=== PATIENT | male | born 1965 | race Caucasian/White ===

== ENCOUNTER 2022-06-25 18:41 | Observation (INO) | payer MEDICARE, OTHER ==
[2022-06-25] MEDS ORDERED: NITROGLYCERIN OINT 1 INCH/GM PACKET TOPICAL STA (18:47)
[2022-06-25] MEDS ORDERED: ASPIRIN 81 MG PO STA (18:47)
--- NOTE | 2022-06-25 18:53 | ED ---
General Adult HPI - General Stated complaint: chest pain Time Seen by Provider: 06/25/22 18:41 Source: patient, RN notes reviewed, old records reviewed - History of Present Illness Initial comments: This is a 57-year-old male who presents emergency Department from [facility]. Patient sent for alcohol abuse he states he hasn't drank in 2 months. Patient states this morning he had chest pain it was intermittent all day lasting either 10 minutes to an hour and it was associated with some sweating and some shortness of breath per patient states in the industrial truck mechanic gave the patient nitroglycerin and aspirin it took away the pain patient remains pain-free currently. Patient states he did have a heart attack back in the 90s. Patient also has a history of high blood pressure high cholesterol and smokes and has a positive family history of heart disease. Patient denies any recent fever chills or cough. Patient denies any abdominal pain patient denies any nausea vomiting - Related Data Home Medications Medication Instructions Recorded Confirmed Acetaminophen Tab [Tylenol] 650 mg PO TID 06/25/22 06/25/22 Benzocaine 20 % Gel [Orajel] 1 applic PO DIRECTED PRN 06/25/22 06/25/22 Calcium/Magnesium/Zinc/Vitamin D 1 tab PO TID 06/25/22 06/25/22 334/134/5mg Clindamycin [Cleocin] 450 mg PO TID@0600,1200,1800 06/25/22 06/25/22 Ibuprofen [Motrin Ib] 600 mg PO Q6H PRN 06/25/22 06/25/22 Lidocaine Viscous 2% [Xylocaine 1 dose PO DIRECTED PRN 06/25/22 06/25/22 Viscous] Multivitamins, Thera [Multivitamin 1 tab PO DAILY 06/25/22 06/25/22 (formulary)] Thiamine [Vitamin B-1] 100 mg PO DAILY 06/25/22 06/25/22 guaiFENesin [guaiFENesin Oral 200 mg PO Q4H PRN 06/25/22 06/25/22 Solution] traZODone HCL [Desyrel] 50 - 150 mg PO HS 06/25/22 06/25/22 Allergies Allergy/AdvReac Type Severity Reaction Status Date / Time No Known Allergies Allergy Verified 06/25/22 20:06 Review of Systems ROS Statement: Those systems with pertinent positive or pertinent negative responses have been documented in the HPI. ROS Other: All systems not noted in ROS Statement are negative. General Exam - General Exam Comments Initial Comments: GENERAL: Patient is well-developed and well-nourished. Patient is nontoxic and well- hydrated and is in mild distress. ENT: Neck is soft and supple. No significant lymphadenopathy is noted. Oropharynx is clear. Moist mucous membranes. Neck has full range of motion without eliciting any pain. EYES: The sclera were anicteric and conjunctiva were pink and moist. Extraocular movements were intact and pupils were equal round and reactive to light. Eyelids were unremarkable. PULMONARY: Unlabored respirations. Good breath sounds bilaterally. No audible rales rhonchi or wheezing was noted. CARDIOVASCULAR: There is a regular rate and rhythm without any murmurs gallops or rubs. ABDOMEN: Soft and nontender with normal bowel sounds. SKIN: Skin is clear with no lesions or rashes and otherwise unremarkable. NEUROLOGIC: Patient is alert and oriented x3. Cranial nerves II through XII are grossly intact. Motor and sensory are also intact. Normal speech, volume and content. Symmetrical smile. MUSCULOSKELETAL: Normal extremities with adequate strength and full range of motion. LYMPHATICS: No significant lymphadenopathy is noted PSYCHIATRIC: Normal psychiatric evaluation. Course Vital Signs 06/25/22 06/25/22 06/25/22 18:45 18:56 20:41 Temperature 97.5 F L Pulse Rate 71 65 Pulse Rate [ 72 Web Site Designer ] Respiratory 18 18 Rate Blood Pressure 163/101 153/108 O2 Sat by Pulse 98 95 Oximetry Medical Decision Making - Medical Decision Making EKG shows a sinus rhythm at [address] interval is 153 QRS is 92 QT interval is 44 QTC is 413. Patient's EKG shows no ST segment elevation or depression. Was pt. sent in by a medical professional or institution (, PA, ADVISORY INTERN, urgent care, hospital, or halfway...) When possible be specific @ -No Did you speak to anyone other than the patient for history (EMS, parent, family, police, friend...)? What history was obtained from this source @ -EMS gave part of the report. Did you review nursing and triage notes (agree or disagree)? Why? @ -I reviewed and agree with nursing and triage notes Were old charts reviewed (outside hosp., previous admission, EMS record, old EKG, old radiological studies, urgent care reports/EKG's, halfway records)? Report findings @ -No old charts were reviewed Differential Diagnosis (chest pain, altered mental status, abdominal pain women, abdominal pain men, vaginal bleeding, weakness, fever, dyspnea, syncope, headache, dizziness, GI bleed, back pain, seizure, CVA, palpatations, mental health, musculoskeletal)? @ -Differential Chest Pain: Stable Angina, Unstable Angina, STEMI, NSTEMI Aortic Dissection, Pneumothorax, Musculoskeletal, Esophageal Spasm GERD, Cholecystitis, Pancreatitis, Zoster, this is not meant to be an all-inclusive list. EKG interpreted by me (3pts min.). @ -As above X-rays interpreted by me (1pt min.). @ -Chest x-ray was interpreted by myself. X-ray shows no acute abnormality CT interpreted by me (1pt min.). @ -None done U/S interpreted by me (1pt. min.). @ -None done What testing was considered but not performed or refused? (CT, X-rays, U/S, labs)? Why? @ -None What meds were considered but not given or refused? Why? @ -None Did you discuss the management of the patient with other professionals (professionals i.e. , PA, ADVISORY INTERN, lab, RT, psych nurse, social and human services assistant, hardware installation coordinator, teacher, combatant diver officer, casework specialist)? Give summary @ -I spoke with the [facility]ist agreed to admit the patient admitted the patient wrote admitting orders Was smoking cessation discussed for >3mins.? @ -No Was critical care preformed (if so, how long)? @ -No Were there social determinants of health that impacted care today? How? (Homelessness, low income, unemployed, alcoholism, drug addiction, transportation, low edu. Level, literacy, decrease access to med. care, long-term, rehab)? @ -No Was there de-escalation of care discussed even if they declined (Discuss DNR or withdrawal of care, Hospice)? DNR status @ -No What co-morbidities impacted this encounter? (DM, HTN, Smoking, COPD, CAD, Cance r, CVA, ARF, Chemo, Hep., AIDS, mental health diagnosis, sleep apnea, morbid obesity)? @ -None Was patient admitted / discharged? Hospital course, mention meds given and route, prescriptions, significant lab abnormalities, going to OR and other pertinent info. @ -Patient came in with chest pain EMS gave the patient aspirin and nitroglycerin and it took away his pain completely. He remained chest pain-free throughout his course in the emergency department. Chest x-ray was done and showed no acute abnormality. Troponin was sent was normal at this time. I spoke with [facility] see agreed to admit patient to the patient consult cardiology I repeated troponins. Undiagnosed new problem with uncertain prognosis? @ -No Drug Therapy requiring intensive monitoring for toxicity (Heparin, Nitro, Insulin, Cardizem)? @ -No Were any procedures done? @ -No Diagnosis/symptom? @ -Chest pain Acute, or Chronic, or Acute on Chronic? @ -Acute Uncomplicated (without systemic symptoms) or Complicated (systemic symptoms)? @ -Complicated Side effects of treatment? @ -No Exacerbation, Progression, or Severe Exacerbation? @ -No Poses a threat to life or bodily function? How? (Chest pain, USA, MT, pneumonia, PE, COPD, DKA, ARF, appy, cholecystitis, CVA, Diverticulitis, Homicidal, Suicidal, threat to staff... and all critical care pts) @ -Yes this could lead to myocardial infarction which can lead to hypoperfusion was completed and oriented dysfunction - Lab Data Result diagrams: 06/25/22 19:01 06/25/22 19:01 Lab Results 06/25/22 06/25/22 06/25/22 Range/Units 19:01 19:01 19:01 WBC 9.2 (3.8-10.6) k/uL RBC 4.09 L (4.30-5.90) m/uL Hgb 13.2 (13.0-17.5) gm/dL Hct 40.4 (39.0-53.0) % MCV 98.6 (80.0-100.0) fL MCH 32.3 (25.0-35.0) pg MCHC 32.8 (31.0-37.0) g/dL RDW 13.3 (11.5-15.5) % Plt Count 217 (150-450) k/uL MPV 7.4 Neutrophils % 66 % Lymphocytes % 21 % Monocytes % 7 % Eosinophils % 4 % Basophils % 1 % Neutrophils # 6.1 (1.3-7.7) k/uL Lymphocytes # 1.9 (1.0-4.8) k/uL Monocytes # 0.7 (0-1.0) k/uL Eosinophils # 0.4 (0-0.7) k/uL Basophils # 0.1 (0-0.2) k/uL PT 9.9 (9.0-12.0) sec INR 0.9 (<1.2) APTT 26.4 (22.0-30.0) sec Sodium 140 (137-145) mmol/L Potassium 4.9 (3.5-5.1) mmol/L Chloride 107 (98-107) mmol/L Carbon Dioxide 26 (22-30) mmol/L Anion Gap 7 mmol/L BUN 19 (9-20) mg/dL Creatinine 0.63 L (0.66-1.25) mg/dL Est GFR (CKD-EPI)AfAm >90 (>60 ml/min/1.73 sqM) Est GFR (CKD-EPI)NonAf >90 (>60 ml/min/1.73 sqM) Glucose 101 H (74-99) mg/dL Calcium 9.3 (8.4-10.2) mg/dL Magnesium 1.8 (1.6-2.3) mg/dL Total Bilirubin 0.3 (0.2-1.3) mg/dL AST 23 (17-59) U/L ALT 15 (4-49) U/L Alkaline Phosphatase 48 (38-126) U/L Troponin I (0.000-0.034) ng/mL Total Protein 6.5 (6.3-8.2) g/dL Albumin 3.8 (3.5-5.0) g/dL 06/25/22 Range/Units 19:01 WBC (3.8-10.6) k/uL RBC (4.30-5.90) m/uL Hgb (13.0-17.5) gm/dL Hct (39.0-53.0) % MCV (80.0-100.0) fL MCH (25.0-35.0) pg MCHC (31.0-37.0) g/dL RDW (11.5-15.5) % Plt Count (150-450) k/uL MPV Neutrophils % % Lymphocytes % % Monocytes % % Eosinophils % % Basophils % % Neutrophils # (1.3-7.7) k/uL Lymphocytes # (1.0-4.8) k/uL Monocytes # (0-1.0) k/uL Eosinophils # (0-0.7) k/uL Basophils # (0-0.2) k/uL PT (9.0-12.0) sec INR (<1.2) APTT (22.0-30.0) sec Sodium (137-145) mmol/L Potassium (3.5-5.1) mmol/L Chloride (98-107) mmol/L Carbon Dioxide (22-30) mmol/L Anion Gap mmol/L BUN (9-20) mg/dL Creatinine (0.66-1.25) mg/dL Est GFR (CKD-EPI)AfAm (>60 ml/min/1.73 sqM) Est GFR (CKD-EPI)NonAf (>60 ml/min/1.73 sqM) Glucose (74-99) mg/dL Calcium (8.4-10.2) mg/dL Magnesium (1.6-2.3) mg/dL Total Bilirubin (0.2-1.3) mg/dL AST (17-59) U/L ALT (4-49) U/L Alkaline Phosphatase (38-126) U/L Troponin I <0.012 (0.000-0.034) ng/mL Total Protein (6.3-8.2) g/dL Albumin (3.5-5.0) g/dL Disposition Clinical Impression: Chest pain Disposition: ADMITTED IP TO THIS HOSP Referrals: Nonstaff,Physician [Primary Care Provider] - 1-2 days Time of Disposition: 20:49
[2022-06-25 19:20] LABS: Basophils # (A) 0.1 k/uL (0-0.2); Basophils % (A) 1 %; Eosinophils # (A) 0.4 k/uL (0-0.7); Eosinophils % (A) 4 %; HCT 40.4 % (39.0-53.0); HGB 13.2 gm/dL (13.0-17.5); Lymphocytes # (A) 1.9 k/uL (1.0-4.8); Lymphocytes % (A) 21 %; MCH 32.3 pg (25.0-35.0); MCHC 32.8 g/dL (31.0-37.0); MCV 98.6 fL (80.0-100.0); Mean Platelet Volume 7.4; Monocytes # (A) 0.7 k/uL (0-1.0); Monocytes % (A) 7 %; Neutrophils # (A) 6.1 k/uL (1.3-7.7); Neutrophils % (A) 66 %; Platelet Count 217 k/uL (150-450); RBC 4.09 m/uL (4.30-5.90); RDW 13.3 % (11.5-15.5); WBC 9.2 k/uL (3.8-10.6)
[2022-06-25 19:28] LABS: Chloride 107 mmol/L (98-107)
[2022-06-25 19:29] LABS: ALT 15 U/L (4-49); AST 23 U/L (17-59); African American GFR (CKD) >90 (>60 ml/min/1.73 sqM); Albumin 3.8 g/dL (3.5-5.0); Alkaline Phosphatase 48 U/L (38-126); Anion Gap 7 mmol/L; Blood Urea Nitrogen 19 mg/dL (9-20); Calcium 9.3 mg/dL (8.4-10.2); Carbon Dioxide 26 mmol/L (22-30); Glucose 101 mg/dL (74-99); Magnesium 1.8 mg/dL (1.6-2.3); Non-African American GFR(CKD) >90 (>60 ml/min/1.73 sqM); Potassium 4.9 mmol/L (3.5-5.1); Sodium 140 mmol/L (137-145); Total Bilirubin 0.3 mg/dL (0.2-1.3); Total Protein 6.5 g/dL (6.3-8.2)
--- NOTE | 2022-06-25 19:45 | XR ---
EXAMINATION TYPE: XR chest 2V DATE OF EXAM: 06/25/2022 COMPARISON: NONE HISTORY: Chest pain TECHNIQUE: 2 views FINDINGS: Heart is normal. Lungs are clear of consolidation. There is old right-sided healed rib frac tures. There are emphysematous changes at the lung apices. No pleural effusion. Thoracic spine is int act. IMPRESSION: No active cardiopulmonary disease. Normal heart. COPD.
[2022-06-25 20:19] LABS: INR 0.9 (<1.2); Partial Thromboplastin Time 26.4 sec (22.0-30.0); Prothrombin Time 9.9 sec (9.0-12.0)
[2022-06-25] MEDS ORDERED: NICOTINE 21MG/24HR PATCH TRANSDERM STA (20:29)
[2022-06-25] MEDS ORDERED: NITROGLYCERIN SL TABS 0.4 MG TAB SUBLINGUAL PRN (20:50)
[2022-06-25] MEDS ORDERED: ACETAMINOPHEN TAB 325 MG TAB PO STA (23:00)
[2022-06-25] MEDS: NITROGLYCERIN OINT 1 INCH/GM PACKET TOPICAL SCH (23:06)
[2022-06-26] MEDS: NITROGLYCERIN OINT 1 INCH/GM PACKET TOPICAL SCH ×3 (05:21→17:48)
[2022-06-26] MEDS ORDERED: KETOROLAC 15 MG/ML 1 ML VIAL IM PRN (08:23)
[2022-06-26] MEDS ORDERED: ASPIRIN 325 MG TAB PO SCH (09:00)
[2022-06-26] MEDS: ACETAMINOPHEN TAB 325 MG TAB PO SCH ×3 (09:00→20:16)
[2022-06-26] MEDS: THIAMINE 100 MG TAB PO SCH (09:01)
[2022-06-26 09:45] LABS: Chol/HDL Ratio 2.99 Ratio; LDL Cholesterol,Calculated 72.6 mg/dL (0.0-131.0); VLDL Calculation 18.58 mg/dL (5.00-40.00)
[2022-06-26] MEDS: ATORVASTATIN 40 MG TAB PO SCH (10:39)
[2022-06-26] MEDS: VALSARTAN 80 MG TAB PO SCH ×2 (10:39→20:16)
--- NOTE | 2022-06-26 11:28 | P.CRDCN ---
History of Present Illness Consult date: 06/26/22 Consult reason: chest pain History of present illness: History of present illness: This is a 57-year-old male patient from the [facility] currently at [place] with past medical history of alcohol abuse, hypertension, COPD. Patient gives history of having a myocardial infarction in the late but no other details are known. Patient did not have extensor cardiac catheterization done at the time. Patient states that he was at substance abuse rehab and he developed sternal chest pain and has had a cough that is nonproductive. No fever or chills. Patient states he has a blood pressure pill which she has not taken for greater than a week. He is unable to recall the name of the blood pressure pill. Patient was found initially to have a blood pressure 163/101. His chest pain at the time of evaluation has been resolved. Regarding alcohol abuse. Patient started drinking at the age of 9 is been drinking for greater than 48 years, last alcohol intake was 2 months ago. Patient is a smoker of 2 packs per day since he was 9 years old. EKG normal sinus rhythm Chest x-ray: No acute findings Troponin negative 3. CBC is unremarkable. Electrolytes are normal. BUN 19 and creatinine 0.63. Blood sugar 101. Liver function tests are normal. Triglycerides 92, cholesterol 137, LDL 72, HDL 45. Home cardiac medications: Unknown name of blood pressure pill Review Of Systems: At the time of my evaluation: Constitutional: No fever, no chills. No weakness, fatigue or lethargy. EENT: No headache. No dizziness. Lungs: No shortness of breath, reports cough, no sputum production. No wheezing. Cardiovascular: No chest pain, no lower extremity edema. No palpitations. No paroxysmal nocturnal dyspnea. No orthopnea. No lightheadedness or dizziness. No syncopal episodes. Abdominal: No abdominal pain. No nausea, vomiting. No diarrhea. No constipation. No bloody or tarry stools. Genitourinary: No dysuria.. No urinary retention. Musculoskeletal: No myalgias. No muscle weakness, no frequent falls. No back pain. No neck pain. Integumentary: No wounds. No rash. No unusual bruising. Neurologic: No aphasia. No facial droop. No change in mentation. No head injury. No headache. Physical examination: Gen: This is a 57-year-old thin male. He is resting in bed in the appears to be in no acute distress VS: reviewed HEENT: Head is atraumatic, normocephalic. Pupils equal, round. Sclerae is anicteric. NECK: Supple. No JVD. . LUNGS: Minimal expiratory wheeze, coarse sounds No intercostal retractions. HEART: Regular rate and rhythm. No murmur. ABDOMEN: Soft No tenderness. EXTREMITIES: No pedal edema. No calf tenderness. NEUROLOGICAL: Patient is awake, alert and oriented x3. Assessment: Hypertensive urgency Chest pain most likely due to hypertension Hypertension COPD Alcohol abuse Tobacco use and dependence Plan: Start patient on valsartan 80 mg twice daily and atorvastatin 40 mg daily Obtain 2-D echocardiogram and Doppler study to assess cardiac structure and function Monitor blood pressure closely most likely discharge back to [place] tomorrow Further recommendations to follow based upon clinical course Thank you kindly for this consultation. Nurse practitioner note has been reviewed, I agree with documented findings and plan of care. Patient was seen and examined. Past Medical History Past Medical History: Myocardial Infarction ([place]) Additional Past Medical History / Comment(s): heart attack late , Last Myocardial Infarction Date:: History of Any Multi-Drug Resistant Organisms: None Reported Past Surgical History: Unable to Obtain Additional Past Surgical History / Comment(s): left knee replacement, left hip replacement, Past Psychological History: No Psychological Hx Reported Smoking Status: Current every day smoker Past Alcohol Use History: None Reported Past Drug Use History: None Reported Medications and Allergies Home Medications Medication Instructions Recorded Confirmed Type Acetaminophen Tab [Tylenol] 650 mg PO TID 06/25/22 06/25/22 History Benzocaine 20 % Gel [Orajel] 1 applic PO DIRECTED PRN 06/25/22 06/25/22 History Calcium/Magnesium/Zinc/Vitamin D 1 tab PO TID 06/25/22 06/25/22 History 334/134/5mg Clindamycin [Cleocin] 450 mg PO TID@0600,1200,1800 06/25/22 06/25/22 History Ibuprofen [Motrin Ib] 600 mg PO Q6H PRN 06/25/22 06/25/22 History Lidocaine Viscous 2% [Xylocaine 1 dose PO DIRECTED PRN 06/25/22 06/25/22 History Viscous] Multivitamins, Thera [Multivitamin 1 tab PO DAILY 06/25/22 06/25/22 History (formulary)] Thiamine [Vitamin B-1] 100 mg PO DAILY 06/25/22 06/25/22 History guaiFENesin [guaiFENesin Oral 200 mg PO Q4H PRN 06/25/22 06/25/22 History Solution] traZODone HCL [Desyrel] 50 - 150 mg PO HS 06/25/22 06/25/22 History Allergies Allergy/AdvReac Type Severity Reaction Status Date / Time No Known Allergies Allergy Verified 06/25/22 20:06 Physical Exam Vitals: Vital Signs Temp Pulse Pulse Resp BP BP BP 06/26/22 07:00 98.2 F 81 16 172/102 06/26/22 01:04 97.6 F 65 20 162/92 06/25/22 23:22 61 22 150/82 06/25/22 20:56 152/97 06/25/22 20:41 65 18 153/108 06/25/22 18:56 72 06/25/22 18:45 97.5 F L 71 18 163/101 Pulse Ox 06/26/22 07:00 97 06/26/22 01:04 98 06/25/22 23:22 98 06/25/22 20:56 06/25/22 20:41 95 06/25/22 18:56 06/25/22 18:45 98 Intake and Output 06/25/22 06/26/22 06/26/22 22:59 06:59 14:59 Other: # Voids 1 Weight 64.41 kg 64.41 kg Results 06/25/22 19:01 06/25/22 19:01 Cardiac Enzymes 06/25/22 06/25/22 06/25/22 Range/Units 19:01 19:01 21:10 AST 23 (17-59) U/L Troponin I <0.012 <0.012 (0.000-0.034) ng/mL 06/26/22 Range/Units 01:34 AST (17-59) U/L Troponin I <0.012 (0.000-0.034) ng/mL Coagulation 06/25/22 Range/Units 19:01 PT 9.9 (9.0-12.0) sec APTT 26.4 (22.0-30.0) sec CBC 06/25/22 Range/Units 19:01 WBC 9.2 (3.8-10.6) k/uL RBC 4.09 L (4.30-5.90) m/uL Hgb 13.2 (13.0-17.5) gm/dL Hct 40.4 (39.0-53.0) % Plt Count 217 (150-450) k/uL Comprehensive Metabolic Panel 06/25/22 Range/Units 19:01 Sodium 140 (137-145) mmol/L Potassium 4.9 (3.5-5.1) mmol/L Chloride 107 (98-107) mmol/L Carbon Dioxide 26 (22-30) mmol/L BUN 19 (9-20) mg/dL Creatinine 0.63 L (0.66-1.25) mg/dL Glucose 101 H (74-99) mg/dL Calcium 9.3 (8.4-10.2) mg/dL AST 23 (17-59) U/L ALT 15 (4-49) U/L Alkaline Phosphatase 48 (38-126) U/L Total Protein 6.5 (6.3-8.2) g/dL Albumin 3.8 (3.5-5.0) g/dL Current Medications Generic Name Dose Route Start Last Admin Trade Name Freq PRN Reason Stop Dose Admin Acetaminophen 650 mg 06/26/22 09:00 06/26/22 09:00 Acetaminophen Tab 325 Mg Tab PO 650 mg TID [facility] Administration Aspirin 325 mg 06/26/22 09:00 06/26/22 09:01 Aspirin 325 Mg Tab PO 325 mg DAILY [facility] Administration Atorvastatin Calcium 40 mg 06/26/22 09:45 Atorvastatin 40 Mg Tab PO DAILY [facility] Clindamycin HCl 450 mg 06/26/22 12:00 Clindamycin 150 Mg Cap PO 07/03/22 23:00 TID@0600,1200,1800 [facility] Protocol Ketorolac Tromethamine 15 mg 06/26/22 08:23 Ketorolac 15 Mg/Ml 1 Ml Vial IM 06/29/22 08:23 Q6HR PRN Pain Nitroglycerin 0.4 mg 06/25/22 20:50 Nitroglycerin Sl Tabs 0.4 Mg Tab SUBLINGUAL Q5M PRN Chest Pain Nitroglycerin 1 inch 06/26/22 00:00 06/26/22 05:21 Nitroglycerin Oint 1 Inch/Gm Packet TOPICAL Not Given Q6HR [facility] Thiamine HCl 100 mg 06/26/22 09:00 06/26/22 09:01 Thiamine 100 Mg Tab PO 100 mg DAILY [facility] Administration Trazodone HCl 100 mg 06/26/22 21:00 Trazodone Hcl 50 Mg Tab PO HS [facility] Valsartan 80 mg 06/26/22 09:45 Valsartan 80 Mg Tab PO BID [facility] Intake and Output 06/25/22 06/26/22 06/26/22 22:59 06:59 14:59 Other: # Voids 1 Weight 64.41 kg 64.41 kg 06/25/22 19:01 06/25/22 19:01
[2022-06-26] MEDS: CLINDAMYCIN 150 MG CAP PO SCH ×2 (12:05→18:26)
[2022-06-26] MEDS: NICOTINE 21MG/24HR PATCH TRANSDERM SCH (12:05)
[2022-06-26] MEDS: KETOROLAC 15 MG/ML 1 ML VIAL IVP SCH ×2 (12:08→17:48)
--- NOTE | 2022-06-26 18:31 | P.HPIM ---
History of Present Illness H&P Date: 06/26/22 Chief Complaint: Chest pain 57-year-old male who presents emergency Department from [facility]. Patient sent for alcohol abuse he states he hasn't drank in 2 months. Patient states this morning he had chest pain it was intermittent all day lasting either 10 minutes to an hour and it was associated with some sweating and some shortness of breath per patient states in the special education para professional gave the patient nitroglycerin and aspirin it took away the pain patient remains pain-free currently. Patient states he did have a heart attack back in the 90s. Patient also has a history of high blood pressure high cholesterol and smokes and has a positive family history of heart disease. Patient denies any recent fever chills or cough. Patient denies any abdominal pain patient denies any nausea vomiting EKG normal sinus rhythm Chest x-ray: No acute findings Troponin negative 3. CBC is unremarkable. Electrolytes are normal. BUN 19 and creatinine 0.63. Blood sugar 101. Liver function tests are normal. Triglycerides 92, cholesterol 137, LDL 72, HDL 45. Review of Systems REVIEW OF SYSTEMS: CONSTITUTIONAL: No fever, no malaise, no fatigue. HEENT: No recent visual problems or hearing problems. Denied any sore throat. CARDIOVASCULAR: No chest pain, orthopnea, PND, no palpitations, no syncope. PULMONARY: No shortness of breath, no cough, no hemoptysis. GASTROINTESTINAL: No diarrhea, no nausea, no vomiting, no abdominal pain. NEUROLOGICAL: No headaches, no weakness, no numbness. HEMATOLOGICAL: Denies any bleeding or petechiae. GENITOURINARY: Denies any burning micturition, frequency, or urgency. MUSCULOSKELETAL/RHEUMATOLOGICAL: Denies any joint pain, swelling, or any muscle pain. ENDOCRINE: Denies any polyuria or polydipsia. The rest of the 14-point review of systems is negative. Past Medical History Past Medical History: Myocardial Infarction (MD) Additional Past Medical History / Comment(s): heart attack late , Last Myocardial Infarction Date:: History of Any Multi-Drug Resistant Organisms: None Reported Past Surgical History: Unable to Obtain Additional Past Surgical History / Comment(s): left knee replacement, left hip replacement, Past Psychological History: No Psychological Hx Reported Smoking Status: Current every day smoker Past Alcohol Use History: None Reported Past Drug Use History: None Reported Medications and Allergies Home Medications Medication Instructions Recorded Confirmed Type Acetaminophen Tab [Tylenol] 650 mg PO TID 06/25/22 06/25/22 History Benzocaine 20 % Gel [Orajel] 1 applic PO DIRECTED PRN 06/25/22 06/25/22 History Calcium/Magnesium/Zinc/Vitamin D 1 tab PO TID 06/25/22 06/25/22 History 334/134/5mg Clindamycin [Cleocin] 450 mg PO TID@0600,1200,1800 06/25/22 06/25/22 History Ibuprofen [Motrin Ib] 600 mg PO Q6H PRN 06/25/22 06/25/22 History Lidocaine Viscous 2% [Xylocaine 1 dose PO DIRECTED PRN 06/25/22 06/25/22 History Viscous] Multivitamins, Thera [Multivitamin 1 tab PO DAILY 06/25/22 06/25/22 History (formulary)] Thiamine [Vitamin B-1] 100 mg PO DAILY 06/25/22 06/25/22 History guaiFENesin [guaiFENesin Oral 200 mg PO Q4H PRN 06/25/22 06/25/22 History Solution] traZODone HCL [Desyrel] 50 - 150 mg PO HS 06/25/22 06/25/22 History Allergies Allergy/AdvReac Type Severity Reaction Status Date / Time No Known Allergies Allergy Verified 06/25/22 20:06 Physical Exam Vitals: Vital Signs Temp Pulse Pulse Resp BP BP Pulse Ox 06/26/22 01:04 97.6 F 65 20 162/92 98 06/25/22 23:22 61 22 150/82 98 06/25/22 20:56 152/97 06/25/22 20:41 65 18 153/108 95 06/25/22 18:56 72 06/25/22 18:45 97.5 F L 71 18 163/101 98 Intake and Output 06/25/22 06/26/22 06/26/22 22:59 06:59 14:59 Other: # Voids 1 Weight 64.41 kg 64.41 kg PHYSICAL EXAMINATION: GENERAL: The patient is alert and oriented x3, not in any acute distress. Well developed, well nourished. HEENT: Pupils are round and equally reacting to light. EOMI. No scleral icterus. No conjunctival pallor. Normocephalic, atraumatic. No pharyngeal erythema. No thyromegaly. CARDIOVASCULAR: S1 and S2 present. No murmurs, rubs, or gallops. PULMONARY: Chest is clear to auscultation, no wheezing or crackles. ABDOMEN: Soft, nontender, nondistended, normoactive bowel sounds. No palpable o rganomegaly. MUSCULOSKELETAL: No joint swelling or deformity. EXTREMITIES: No cyanosis, clubbing, or pedal edema. NEUROLOGICAL: Gross neurological examination did not reveal any focal deficits. SKIN: No rashes. Results CBC & Chem 7: 06/25/22 19:01 06/25/22 19:01 Labs: Abnormal Lab Results - Last 24 Hours (Table) 06/25/22 06/25/22 Range/Units 19: 19:01 RBC 4.09 L (4.30-5.90) m/uL Creatinine 0.63 L (0.66-1.25) mg/dL Glucose 101 H (74-99) mg/dL Assessment and Plan Assessment: 1. Chest pain rule out acute coronary syndrome - Patient is to be admitted to telemetry; monitor EKG and trend troponin - 2-D echo to assess cardiac function - Consult cardiology for further recommendations 2. Hypertensive urgency; patient not on any antihypertensive therapy at this time - We will monitor blood pressure closely; use hydralazine IV when necessary; patient will be started on scheduled medication if blood pressure remains elevated 3. Left-sided tooth abscess - Patient has been placed on clindamycin 450 mg by mouth 3 times a day - We will continue with current dose and patient will follow-up with primary dentist as an outpatient 4. COPD; not in exacerbation; continue with home inhaler therapy 5. Hyperlipidemia; Lipitor 40 mg by mouth daily 6. Alcohol abuse; counseling done on cessation; continue with thiamine and folic acid 7. Tobacco use and dependence; nicotine patch added DVT prophylaxis; SCDs CODE STATUS; full code
[2022-06-26] MEDS ORDERED: guaiFENesin-DM 100-10MG/5ML 10 ML CUP PO PRN (20:45)
[2022-06-26] MEDS ORDERED: traZODone HCL 50 MG TAB PO SCH (21:00)
[2022-06-27] MEDS: KETOROLAC 15 MG/ML 1 ML VIAL IVP SCH ×3 (02:26→13:50)
[2022-06-27] MEDS: NITROGLYCERIN OINT 1 INCH/GM PACKET TOPICAL SCH ×3 (02:26→13:41)
[2022-06-27] MEDS: CLINDAMYCIN 150 MG CAP PO SCH ×2 (05:45→13:54)
[2022-06-27] MEDS ORDERED: VALSARTAN 80 MG TAB PO STA (08:07)
[2022-06-27] MEDS ORDERED: VALSARTAN 160 MG TAB PO SCH (08:30)
[2022-06-27] MEDS: THIAMINE 100 MG TAB PO SCH (09:15)
[2022-06-27] MEDS: ACETAMINOPHEN TAB 325 MG TAB PO SCH (09:15)
[2022-06-27] MEDS: NICOTINE 21MG/24HR PATCH TRANSDERM SCH (09:15)
[2022-06-27] MEDS: ATORVASTATIN 40 MG TAB PO SCH (09:16)
[2022-06-27 09:20] VITALS: RESP 16
--- NOTE | 2022-06-27 11:14 | CA ---
Transthoracic Echo Report Name: Marshall Turner Age: 57 Gender: M : 1965 Exam Date: 06/26/2022 12:04 Exam Location: [facility] Ht (in): 71 Wt (lb): 142 Ordering Physician: Katie Freire Attending/Referring Phys: [id number], Tani Yarn Spinner Lydia Sweeney RDCS Procedure CPT: Indications: LVF Cardiac Hx: Technical Quality: Fair Contrast 1: Total Dose (mL): Contrast 2: Total Dose (mL): MEASUREMENTS (Male / Female) Normal Values 2D ECHO LV Diastolic Diameter PLAX 4.0 cm 4.2 - 5.9 / 3.9 - 5.3 cm LV Systolic Diameter PLAX 2.5 cm IVS Diastolic Thickness 1.3 cm 0.6 - 1.0 / 0.6 - 0.9 cm LVPW Diastolic Thickness 1.3 cm 0.6 - 1.0 / 0.6 - 0.9 cm LV Relative Wall Thickness 0.6 RV Internal Dim ED PLAX 2.8 cm LA Volume 78.3 cm??? 18 - 58 / 22 - 52 cm??? M-MODE Aortic Root Diameter MM 2.8 cm LA Systolic Diameter MM 5.2 cm LA Ao Ratio MM 1.9 AV Cusp Separation MM 1.6 cm DOPPLER AV Peak Velocity 289.5 cm/s AV Peak Gradient 33.5 mmHg AV Mean Velocity 160.8 cm/s AV Mean Gradient 12.1 mmHg AV Velocity Time Integral 48.9 cm AI Peak Velocity 409.9 cm/s AI Peak Gradient 67.2 mmHg AI Pressure Half Time 678.0 ms LVOT Peak Velocity 145.6 cm/s LVOT Peak Gradient 8.5 mmHg LVOT Velocity Time Integral 32.5 cm MV Area PHT 2.5 cm??? Mitral E Point Velocity 83.1 cm/s Mitral A Point Velocity 47.7 cm/s Mitral E to A Ratio 1.7 MV Deceleration Time 308.8 ms MV E' Velocity 7.1 cm/s Mitral E to MV E' Ratio 11.7 TR Peak Velocity 245.3 cm/s TR Peak Gradient 24.1 mmHg Right Ventricular Systolic Press 29.1 mmHg FINDINGS Left Ventricle Mildly increased left ventricular wall thickness. Left ventricular cavity size normal. Normal left ventricular systolic function with no obvious regional wall motion abnormalities. Left ventricular ejection fraction is estimated at 55-60 %. Right Ventricle Normal right ventricular size and function. Right ventricular systolic pressure within normal limits. Right Atrium Normal right atrial size. Left Atrium Moderately increased left atrial volume. Mildly increased left atrial area. Mitral Valve Structurally normal mitral valve. Mild mitral regurgitation. Aortic Valve Trileaflet aortic valve. No aortic valve stenosis, mild regurgitation. Tricuspid Valve Structurally normal tricuspid valve. Mild tricuspid regurgitation. Pulmonic Valve Trace pulmonic regurgitation. Pericardium No pericardial effusion. Aorta Normal size aortic root and proximal ascending aorta. CONCLUSIONS LVH with preserved systolic function Previewed by: Dr. Lex Barclay MD (Electronically Signed) Final Date: 27 June 2022 11:13
--- NOTE | 2022-06-27 12:23 | P.PN ---
Subjective Progress Note Date: 06/27/22 History of present illness: This is a 57-year-old male patient from the [place] area currently at [facility] with past medical history of alcohol abuse, hypertension, COPD. Patient gives history of having a myocardial infarction in the late but no other details are known. Patient did not have extensor cardiac catheterization done at the time. Patient states that he was at substance abuse rehab and he developed sternal chest pain and has had a cough that is nonproductive. No fever or chills. Patient states he has a blood pressure pill which she has not taken for greater than a week. He is unable to recall the name of the blood pressure pill. Patient was found initially to have a blood pressure 163/101. His chest pain at the time of evaluation has been resolved. Regarding alcohol abuse. Patient started drinking at the age of 9 is been drinking for greater than 48 years, last alcohol intake was 2 months ago. Patient is a smoker of 2 packs per day since he was 9 years old. EKG normal sinus rhythm Chest x-ray: No acute findings Troponin negative 3. CBC is unremarkable. Electrolytes are normal. BUN 19 and creatinine 0.63. Blood sugar 101. Liver function tests are normal. Triglycerides 92, cholesterol 137, LDL 72, HDL 45. Home cardiac medications: Unknown name of blood pressure pill 06/27 Patient was started yesterday on valsartan and blood pressure is high but improved at 156/85. Echocardiogram reveals LVH with preserved systolic function. The patient denies having any chest pain, shortness of breath, lightheadedness or dizziness. Physical examination: Gen: This is a 57-year-old thin male. He is resting in bed in the appears to be in no acute distress VS: reviewed HEENT: Head is atraumatic, normocephalic. Pupils equal, round. Sclerae is anicteric. NECK: Supple. No JVD. . LUNGS: Minimal expiratory wheeze, coarse sounds No intercostal retractions. HEART: Regular rate and rhythm. No murmur. ABDOMEN: Soft No tenderness. EXTREMITIES: No pedal edema. No calf tenderness. NEUROLOGICAL: Patient is awake, alert and oriented x3. Assessment: Hypertensive urgency Chest pain most likely due to hypertension Hypertension COPD Alcohol abuse Tobacco use and dependence Plan: Continue patient on valsartan increased to 160 mg twice daily and continue patient on Lipitor 40 mg daily Patient is cleared from cardiology for discharge home. Handwritten prescriptions for valsartan and atorvastatin have been provided for his discharge back to [facility]. Nurse practitioner note has been reviewed, I agree with documented findings and plan of care. Patient was seen and examined. Objective - Vital Signs Vital signs: Vital Signs Temp 97.9 F 06/27/22 02:00 Pulse 82 06/27/22 02:00 Resp 17 06/27/22 02:00 BP 156/85 06/27/22 02:00 Pulse Ox 93 L 06/27/22 02:00 FiO2 Intake & Output 06/26/22 06/27/22 06/27/22 18:59 06:59 18:59 Other: # Voids 6 1 # Bowel Movements 2 - Labs CBC & Chem 7: 06/25/22 19:01 06/25/22 19:01
[2022-06-27 14:20] VITALS: BP 129/74; PULSE 73; TEMP 97.6
== END 2022-06-27 16:12 | disposition other institution (70) ==
LOC: EC 18:41 → UNDOADMIN 20:50 → 6NMEDSUR 20:50
PROVIDERS: ADMIT Hospitalist; ATTEND Hospitalist
DX: R07.89 Other chest pain (principal); I16.0 Hypertensive urgency; I10 Essential (primary) hypertension; T46.5X6A Underdosing of other antihypertensive drugs, initial encounter; J44.9 Chronic obstructive pulmonary disease, unspecified; F10.10 Alcohol abuse, uncomplicated; E78.00 Pure hypercholesterolemia, unspecified; R61 Generalized hyperhidrosis; K04.7 Periapical abscess without sinus; F17.210 Nicotine dependence, cigarettes, uncomplicated; I25.2 Old myocardial infarction; Z96.652 Presence of left artificial knee joint; Z96.642 Presence of left artificial hip joint; Z71.41 Alcohol abuse counseling and surveillance of alcoholic; Z79.899 Other long term (current) drug therapy; Z82.49 Family history of ischemic heart disease and other diseases of the circulatory system
CPT/HCPCS: 96376; 96372; 96374; 99285; 36415; 94760; 93005; 93306; 80061; 80053; 83735; 84484 ×2; 85025; 85610; 85730; 71046; G0378 ×3; S4990 ×3; J1885 ×2

== ENCOUNTER 2022-06-29 10:52 | Emergency (ER) | payer MEDICARE, OTHER ==
[2022-06-29 11:54] VITALS: BP 144/91; PULSE 66; RESP 22; TEMP 98
--- NOTE | 2022-06-29 13:21 | XR ---
EXAMINATION TYPE: XR chest 2V DATE OF EXAM: 06/29/2022 1:11 PM COMPARISON: Chest radiographs from 06/25/2022 TECHNIQUE: XR chest 2V Frontal and lateral views of the chest. CLINICAL INDICATION:Male, 57 years old with history of Choking; FINDINGS: Lungs/Pleura: There is flattening of the diaphragm with increased lucency of the lungs. No evidence o f pneumothorax, pleural effusion or focal consolidation. Pulmonary vascularity: Unremarkable. Heart/mediastinum: Cardiomediastinal silhouette is unremarkable. Musculoskeletal: No acute osseous pathology. Remote right-sided rib fractures. IMPRESSION: 1. No acute cardiopulmonary disease/process. 2. COPD changes.
[2022-06-29] MEDS ORDERED: ACETAMINOPHEN TAB 500 MG TAB PO STA (13:26)
--- NOTE | 2022-06-29 13:27 | ED ---
General Adult HPI - General Chief complaint: Recheck/Abnormal Lab/Rx Stated complaint: recheck Time Seen by Provider: 06/29/22 12:40 Source: patient, RN notes reviewed Mode of arrival: ambulatory Limitations: no limitations - History of Present Illness Initial comments: This is a 57-year-old male who presents to the emergency department for a choking episode. Patient is at [facility] for alcohol abuse. States that he was drinking his coffee this morning, when he accidentally choked on it. States that he currently feels fine and denies any concerns. He has no chest pain or shortness of breath. He requests Tylenol for a toothache, which he states is a long-standing chronic problem. He has a follow-up scheduled with his primary care provider tomorrow. Denies any fevers, chills, sore throat, cough, dyspnea, chest pain, palpitations, abdominal pain, nausea, vomiting, diarrhea, back pain, or headaches. MD Complaint: choking - Related Data Home Medications Medication Instructions Recorded Confirmed Acetaminophen Tab [Tylenol] 650 mg PO TID 06/25/22 06/25/22 Benzocaine 20 % Gel [Orajel] 1 applic PO DIRECTED PRN 06/25/22 06/25/22 Calcium/Magnesium/Zinc/Vitamin D 1 tab PO TID 06/25/22 06/25/22 334/134/5mg Clindamycin [Cleocin] 450 mg PO TID@0600,1200,1800 06/25/22 06/25/22 Ibuprofen [Motrin Ib] 600 mg PO Q6H PRN 06/25/22 06/25/22 Lidocaine Viscous 2% [Xylocaine 1 dose PO DIRECTED PRN 06/25/22 06/25/22 Viscous] Multivitamins, Thera [Multivitamin 1 tab PO DAILY 06/25/22 06/25/22 (formulary)] Thiamine [Vitamin B-1] 100 mg PO DAILY 06/25/22 06/25/22 guaiFENesin [guaiFENesin Oral 200 mg PO Q4H PRN 06/25/22 06/25/22 Solution] traZODone HCL [Desyrel] 50 - 150 mg PO HS 06/25/22 06/25/22 Previous Rx's Medication Instructions Recorded Atorvastatin Calcium [Lipitor] 40 mg PO DAILY 30 Days #30 tab 06/27/22 Atorvastatin [Lipitor] 40 mg PO DAILY #30 tab 06/27/22 Valsartan [Diovan] 160 mg PO BID #60 tab 06/27/22 Valsartan [Diovan] 160 mg PO BID 30 Days #60 tablet 06/27/22 Allergies Allergy/AdvReac Type Severity Reaction Status Date / Time No Known Allergies Allergy Verified 06/29/22 11:54 Review of Systems ROS Statement: Those systems with pertinent positive or pertinent negative responses have been documented in the HPI. ROS Other: All systems not noted in ROS Statement are negative. Past Medical History Past Medical History: Myocardial Infarction ([place]) Additional Past Medical History / Comment(s): heart attack late , Last Myocardial Infarction Date:: History of Any Multi-Drug Resistant Organisms: None Reported Past Surgical History: Unable to Obtain Additional Past Surgical History / Comment(s): left knee replacement, left hip replacement, Past Psychological History: No Psychological Hx Reported Smoking Status: Current every day smoker Past Alcohol Use History: Abuse, Daily Past Drug Use History: None Reported General Exam Limitations: no limitations General appearance: alert, in no apparent distress Head exam: Present: atraumatic, normocephalic, normal inspection Neck exam: Present: normal inspection. Absent: tenderness, meningismus, lymphadenopathy Respiratory exam: Present: normal lung sounds bilaterally. Absent: respiratory distress, wheezes, rales, rhonchi, stridor Cardiovascular Exam: Present: regular rate, normal rhythm, normal heart sounds. Absent: systolic murmur, diastolic murmur, rubs, gallop, clicks Neurological exam: Present: alert, oriented X3, CN II-XII intact Psychiatric exam: Present: normal affect, normal mood Skin exam: Present: warm, dry, intact, normal color. Absent: rash Course Vital Signs 06/29/22 11:51 Temperature 98.0 F Pulse Rate 66 Respiratory 22 Rate Blood Pressure 144/91 O2 Sat by Pulse 94 L Oximetry Medical Decision Making - Medical Decision Making This is a 57-year-old male who presents to the emergency department for a choking episode. Was pt. sent in by a medical professional or institution? @ -[facility] Did you speak to anyone other than the patient for history? @ -No Did you review nursing and triage notes? @ -Yes, and I agree, it is accurate with regards to the patient's symptoms. Were old charts reviewed? @ -No Differential Diagnosis? @ -Not applicable X-rays interpreted by me (1pt min.)? @ -Chest x-ray obtained, my interpretation identifies no localized consolidations or infiltrates. What testing was considered but not performed? (CT, X-rays, U/S, labs)? Why? @ -None What meds were considered but not given? Why? @ -None Did you discuss the management of the patient with other professionals? @ -No Did you reconcile home meds? @ -No Was smoking cessation discussed for >3mins.? @ -No Was critical care preformed (if so, how long)? @ -No Were there social determinants of health that impacted care today? How? (Homelessness, low income, unemployed, alcoholism, drug addiction, transportation, low edu. Level, literacy, decrease access to med. care, senior care, rehab)? @ -Yes, patient is in rehab for alcohol abuse, contributing to overall worsenin g of his health status. Was there de-escalation of care discussed even if they declined? (Discuss DNR or withdrawal of care, Hospice)? @ -No What co-morbidities impacted this encounter? (DM, HTN, Smoking, COPD, CAD, Cancer, CVA, Hep., AIDS, mental health diagnosis, sleep apnea, morbid obesity)? @ -Alcohol abuse Was patient admitted / discharged? @ -Discharged. Chest x-ray obtained revealing no acute findings. Discussed with the patient that if he does have an aspiration pneumonia, it will not show up on x-ray right away. If he develops chest pain, shortness of breath, or coughing, he should return to the emergency department for a repeat x-ray for possible aspiration pneumonia. Tylenol administered for his toothache. Patient discharged back to [facility]. Undiagnosed new problem with uncertain prognosis? @ -None Drug Therapy requiring intensive monitoring for toxicity (Heparin, Nitro, Insulin, Cardizem)? @ -None Were any procedures done? @ -None Diagnosis/symptom? @ -Choking episode Acute, or Chronic, or Acute on Chronic? @ -Acute Uncomplicated (without systemic symptoms) or Complicated (systemic symptoms)? @ -Uncomplicated Side effects of treatment? @ -None Exacerbation, Progression, or Severe Exacerbation] @ -Not applicable Poses a threat to life or bodily function? @ -No Return precautions reviewed in depth, the patient is instructed to return to the emergency department with any new, worsening, or concerning symptoms. Patient verbalized understanding. This case was discussed in detail with the attending ED physician, Dr. Beaulieu. Presentation, findings, and treatment plan discussed in detail as well. - Radiology Data Radiology results: report reviewed, image reviewed Disposition Clinical Impression: Choking Disposition: HOME SELF-CARE Instructions (If sedation given, give patient instructions): Performing the Heimlich Maneuver (ED) Additional Instructions: Return to the emergency department with any new, worsening, or concerning symptoms. Follow up with your primary care provider in 1-2 days. Is patient prescribed a controlled substance at d/c from ED?: No Referrals: Nonstaff,Physician [Primary Care Provider] - 1-2 days
== END 2022-06-29 13:44 | disposition home or self-care (01) ==
LOC: EC 10:52
DX: T17.290A Other foreign object in pharynx causing asphyxiation, initial encounter (principal); I25.2 Old myocardial infarction; F17.200 Nicotine dependence, unspecified, uncomplicated
CPT/HCPCS: 71046; 99283